=== PATIENT | female | born 1985 | race African-American/Black ===

== ENCOUNTER 2017-06-01 09:11 | Emergency (ER) | payer OTHER ==
[~2017-06-01] VITALS: Ht 171.4 cm; Wt 109.5 kg
[~2017-06-01 09:11] MED LIST: ASPI-664 PO; ATOR20TA38 PO; BEN50 PO; BENA10TA48 PO; CLON-379 PO; CLOP75TA27 PO; CYCL-319 PO; FOLI-49 PO; IBUP-1542 PO; ISOS30TA5 PO; LAMO100T83 PO; LAMO25TA PO; METO-429 PO; NICO1PAT19 TD; OXCA300T41 PO
[2017-06-01 09:15] VITALS: Ht 171.4 cm; Wt 109.5 kg
--- NOTE | 2017-06-01 10:26 | RADRPT ---
PROCEDURE: CR Left Knee CLINICAL INDICATION: Pain TECHNIQUE: An AP, lateral, and tunnel radiographs were submitted. COMPARISON: None FINDINGS: Osseous Structures: The osseous elements appear well mineralized and intact. Joint Spaces: Minimal degenerative changes seen about the medial femoral tibial and patellar femoral joint spaces. A small joint effusion is noted. Soft Tissues: The soft tissues appear unremarkable. IMPRESSION: 1. Minimal degenerative change. 2. Small joint effusion. Physician Diana Date Time Electronically viewed and signed by Huy Shine Physician on 06/01/2017 10:26 RH/
[2017-06-01] MEDS ORDERED: IBUP-1542 PO (11:33)
[2017-06-01] MEDS ORDERED: HC1C30 TOP (11:33)
[2017-06-01] MEDS ORDERED: TRAM50TA2 PO (11:34)
[2017-06-01] MEDS ORDERED: BEN25 PO (11:35)
--- NOTE | 2017-06-01 12:15 | ERD ---
ER Documentation Chief Complaint Date/Time DATE: 06/01/17 TIME: 12:07 Chief Complaint PT with generalized body rash x 1 day. Lump to L knee and pain X 2 DAYS. HPI This is a 31-year-old female presents to the ER with a rash that started yesterday. Rash is located all over her body and is very itchy. Patient states that he is also experiencing left knee pain after a seizure 2 nights ago.Patient did not hit her head while she was having the seizure. Her was with her in bed. Patient has a seizure disorder and has grand mal seizures constantly. Patient has been taking her medications regularly. Patient denies any chest pain, shortness of breath, calf pain, calf redness or swelling. Knee pain is throbbing in quality and nonradiating. Patient has not tried anything for the knee pain. Patient denies any recent travel. Patient denies any facial swelling or difficulty in breathing or swallowing. Patient denies any fevers or chills. She denies any cough or cold symptoms. ROS 12 point review of systems was done, all negative except per HPI. Medications Home Meds Active Scripts Diphenhydramine Hcl* (Benadryl*) 25 Mg Cap, 25 MG PO Q6, #30 CAP Prov:TARYN GARCIA 06/01/17 Tramadol HCl (Tramadol HCl) 50 Mg Tablet, 50 MG PO Q6 Y for PAIN, #15 TAB Prov:TARYN GARCIA 06/01/17 Hydrocortisone* Topical (Hydrocortisone* Topical) 1%-28.35 Gm Cream..g., 1 APPLIC TOP Q6 Y for ITCHING, #1 TUB Prov:TARYN GARCIA 06/01/17 Ibuprofen* (Motrin*) 600 Mg Tab, 600 MG PO Q6, #30 TAB Prov:TARYN GARCIA 06/01/17 Lamotrigine* (Lamictal*) 100 Mg Tablet, 200 MG PO BID for 30 Days, TAB Prov:OBI JOLLY 08/06/16 Oxcarbazepine* (Oxcarbazepine*) 300 Mg Tablet, 1200 MG PO BID for 30 Days, TAB Prov:OIB JOLLY 08/06/16 Lamotrigine* (Lamotrigine*) 25 Mg Tablet, 25 MG PO BID for 30 Days, TAB Prov:OBI JOLLY 08/06/16 Nicotine* (Nicotine* Patch) 7 mg/day Patch, 1 PATCH TD DAILY for 30 Days, #14 PATCH Prov:OBI JOLLY 08/06/16 Cyclobenzaprine Hcl* (Cyclobenzaprine Hcl*) 10 Mg Tablet, 10 MG PO QHS, #30 TAB Prov:OBI JOLLY 01/25/16 Clopidogrel Bisulfate (Clopidogrel) 75 Mg Tab, 75 MG PO DAILY, #30 Prov:MELCHOR SHAY MD 04/10/15 Reported Medications Benazepril Hcl* (Benazepril Hcl*) 10 Mg Tablet, 10 MG PO BID, #60 TAB 08/04/16 Ibuprofen* (Ibuprofen*) 600 Mg Tablet, 600 MG PO Q6, TAB 08/04/16 Isosorbide Mononitrate* (Isosorbide Mononitrate*) 30 Mg Tab.er.24h, 30 MG PO DAILY, TAB 08/04/16 Diphenhydramine Hcl* (Benadryl*) 50 Mg Cap, 50 MG PO Q6 Y for ITCHING, CAP 08/04/16 Metoprolol Tartrate* (Lopressor*) 50 Mg Tab, 50 MG PO BID, #60 TAB 08/04/16 Clonidine Hcl* (Clonidine Hcl*) 0.1 Mg Tab, 0.1 MG PO BID, TAB 01/22/16 Folic Acid* (Folic Acid*) 1 Mg Tablet, 1 MG PO DAILY, TAB 01/22/16 Atorvastatin Calcium* (Atorvastatin Calcium*) 20 Mg Tablet, 20 MG PO HS, TAB 07/26/15 Aspirin* (Aspirin* EC) 81 Mg Tablet.dr, 81 MG PO DAILY, TAB 07/26/15 Allergies Allergies: Coded Allergies: codeine (Verified Allergy, Severe, SWELLING OF THE FACE, 08/04/16) PMhx/Soc History of Surgery: No Anesthesia Reaction: No Hx Neurological Disorder: No Hx Respiratory Disorders: No Hx Cardiac Disorders: No Hx Psychiatric Problems: No Hx Miscellaneous Medical Probl: No Hx Alcohol Use: No Hx Substance Use: No Hx Tobacco Use: No Smoking Status: Never smoker Physical Exam Vitals Vital Signs Date Time Temp Pulse Resp B/P Pulse Ox O2 Delivery O2 Flow Rate FiO2 06/01/17 09:15 97.7 93 16 123/81 98 Physical Exam GENERAL: The patient is well developed and appropriate for usual state of health , in no apparent distress. HEENT: Atraumatic. No lip, tongue, eyes swelling. CHEST: Clear to auscultation bilaterally. There are no rales, wheezes or rhonchi. HEART: Regular rate and rhythm. No murmurs, clicks, rubs or gallops. EXTREMITIES: Left knee: There is an area of swelling to the bottom lateral knee which is also tender to palpation. There is no erythema or warmth to the touch. Patient has full range of motion of the knee however range of motion is painful. Negative anterior drawer negative posterior drawer negative Lock[place]. Patient does not have any calf pain or femur pain. Patient has full range of motion of her left hip without any pain. +2 dorsalis pedis and posterior tibialis pulses. normal cap refill. NEURO: Alert and oriented. Cranial nerves II through XII are intact. Motor strength in all 4 extremities with 5/5 strength. Sensation grossly intact. Normal speech and gait. SKIN: Papular rash all over body Results 24 hrs [place] [id number] Radiology Main Line: [phone] DIAGNOSTIC IMAGING REPORT Patient: ERIC GASPAR : 1985 Age: 31 Sex: F MR #: [id number] DOS: 06/01/17 0000 Ordering MD: TARYN GARCIA PA-C Location: [facility] Room/Bed: PROCEDURE: CR Left Knee CLINICAL INDICATION: Pain TECHNIQUE: An AP, lateral, and tunnel radiographs were submitted. COMPARISON: None FINDINGS: Osseous Structures: The osseous elements appear well mineralized and intact. Joint Spaces: Minimal degenerative changes seen about the medial femoral tibial and patellar femoral joint spaces. A small joint effusion is noted. Soft Tissues: The soft tissues appear unremarkable. IMPRESSION: 1. Minimal degenerative change. 2. Small joint effusion. Physician Diana Date Time Electronically viewed and signed by Physician Diana on 06/01/2017 10:26 RH/ CC: TARYN GARCIA Procedures/MDM Differential Diagnosis: dermatitis, allergic urticaria, viral exanthem, insect bite, fungal infection ,viral exanthem, hand foot mouth disease, , impetigo, cellulitis, abscess, paul sheeba syndrome, meningocemia. At this time etiology of rash is unknown, however patient is well-appearing and afebrile. Suspicion for infectious etiology is low. Patient does not have any signs or symptoms of severe allergic reaction she does not have any difficulty in breathing or any swelling. Patient will be sent home with hydrocortisone and Benadryl for itching. In regards to patient's knee pain there is a small joint effusion which may be related to sprain versus ligament or meniscus injury. Patient was put in a knee immobilizer she was neurovascularly intact before and after splint application. She was also given crutches. Suspicion for infectious etiology such as septic joint, cellulitis, myelitis, acute compartment syndrome is low. I doubt rhabdo or myositis. Patient will be sent home with ibuprofen and tramadol for pain. Patient urgently needs to follow-up with her primary care doctor within 1-2 days or return to ER sooner if symptoms worsen. My medical decision making shared with the patient she understands and agrees with Departure Diagnosis: Primary Impression: Knee pain Additional Impression: Rash Condition: Stable Patient Instructions: Knee Pain, Uncertain Cause Additional Instructions: Call your primary care doctor TOMORROW for an appointment during the next 1-2 days.See the doctor sooner or return here if your condition worsens before your appointment time. TARYN GARCIA Jun 01, 2017 12:15
== END 2017-06-01 11:48 | disposition home or self-care (01) ==
LOC: FTE 09:11
DX: M25.562 Pain in left knee (principal); Z79.82 Long term (current) use of aspirin
CPT/HCPCS: 29505; 73562; Z7502